=== PATIENT | male | born 2000 | race Caucasian/White ===

== ENCOUNTER 2021-01-08 15:14 | Emergency (ER) | payer OTHER ==
[~2021-01-08] VITALS: Ht 177.8 cm; Wt 89.9 kg
--- NOTE | 2021-01-08 15:28 | PHYS DOC ---
Past History Past Medical History: No Pertinent History Past Surgical History: No Surgical History Smoking: Non-smoker Alcohol Use: Occasionally Drug Use: None General Adult EDM: Chief Complaint: HAND PROBLEM HPI: HPI: 20-year-old male presents with report of right hip pain and swelling to fifth knuckle after patient reportedly was trying to get both out of his truck in order to place running boards. Patient reports the wrench slipped and he struck his side of the truck causing pain to his knuckle. Patient denies any other injury. Denies numbness and tingling. Patient reports taking 2 Tylenol prior to arrival. Review of Systems: Review of Systems: Constitutional: Denies fever or chills Eyes: Denies redness or eye pain HENT: Denies nasal congestion or sore throat Respiratory: Denies cough or shortness of breath Cardiovascular: Denies chest pain or palpitations GI: Denies abdominal pain, nausea, or vomiting : Denies dysuria or hematuria Musculoskeletal: Reports right hand pain and swelling. Integument: Denies rash or skin lesions Neurologic: Denies headache, focal weakness or sensory changes Complete systems were reviewed and found to be within normal limits, except as documented in this note. Allergies: Allergies: Allergies Coded Allergies Type Severity Reaction Last Updated Verified No Known Drug Allergies 01/08/21 No Physical Exam: PE: Constitutional: Well developed, well nourished, no acute distress, non-toxic appearance HENT: Normocephalic, atraumatic Eyes: Conjunctiva normal, no discharge Neck: Normal range of motion, supple Lungs & Thorax: No respiratory distress, equal chest rise and fall Cardiovascular: Right radial pulse +2, right hand cap refill less than 2 seconds Skin: Warm, dry, no erythema, swelling and bruising to right MCP Extremities: Right MCP swelling and tenderness on palpation, pain with range of motion about fourth and fifth digit, other digits with full range of motion Neurologic: Alert and oriented X 3, normal motor function, normal sensory function, no focal deficits noted Psychologic: Affect normal, judgment normal EKG: EKG: [] Radiology/Procedures: Radiology/Procedures: PROCEDURE: HAND RIGHT 3V EXAM: Right hand, 3 views. HISTORY: Blunt trauma. COMPARISON: None. FINDINGS: 3 views of the right hand are obtained. There is a mildly angulated fracture of the distal fifth metacarpal. There is also a small fracture fragment at the base of the fifth metacarpal of uncertain chronicity. There is no foreign body. IMPRESSION: 1. Mildly angulated fracture of the distal fifth metacarpal. 2. Small fracture fragment at the base of the fifth metacarpal, of uncertain chronicity. Correlate for pain in this location. Electronically signed by: Ester Mensah MD (01/08/2021 3:47 PM) [id number] Heart Score: C/O Chest Pain: N/A Course & Med Decision Making: Course & Med Decision Making Pertinent Imaging studies reviewed. (See chart for details) Patient presents with HPI and physical exam concerning for fracture of right hand-specifically fifth metacarpal. Ice applied. Patient took pain medication prior to arrival. X-ray confirmed fracture of distal fifth metacarpal/boxer's fracture. Splint applied. Patient stable for discharge with outpatient follow-up with PCP/orthopedic-hand. Discussed findings and plan with patient, who acknowledges understanding and agreement. Owen Disclaimer: Owen Disclaimer: This electronic medical record was generated, in whole or in part, using a voice recognition dictation system. Splinting Splinting : Location: Right hand Hand-Made Type: orthoglass Splint: ulnar Pre-Proc Neuro Vasc Exam: normal Post-Proc Neuro Vasc Exam: normal, unchanged from pre-exam Departure Departure: Impression: Primary Impression: Boxer's fracture Qualified Codes: S62.339A - Displaced fracture of neck of unspecified metacarpal bone, initial encounter for closed fracture Disposition: HOME / SELF CARE / HOMELESS Condition: STABLE Referrals: NEHEMIAS MOCK (PCP) CORNELIA CALLOWAY MD Patient Instructions: Boxer's Fracture, Splint Care, [id number] Additional Instructions: ICE area 20 min on then leave off next 20 mins. Repeat several times daily as needed for next few days. Take over the counter Tylenol and/or Ibuprofen for pain or discomfort. KEITH SULTANA DO January 08, 2021 15:28
--- NOTE | 2021-01-08 15:50 | RAD ---
EXAM: Right hand, 3 views. HISTORY: Blunt trauma. COMPARISON: None. FINDINGS: 3 views of the right hand are obtained. There is a mildly angulated fracture of the distal fifth metacarpal. There is also a small fracture fragment at the base of the fifth metacarpal of unce rtain chronicity. There is no foreign body. IMPRESSION: 1. Mildly angulated fracture of the distal fifth metacarpal. 2. Small fracture fragment at the base of the fifth metacarpal, of uncertain chronicity. Correlate fo r pain in this location. Electronically signed by: Ester Mensah MD (01/08/2021 3:47 PM) [id number]
[2021-01-08 15:59] VITALS: BP 111/78
== END 2021-01-08 16:00 | disposition home or self-care (01) ==
LOC: ER 15:14
DX: S62.316A Displaced fracture of base of fifth metacarpal bone, right hand, initial encounter for closed fracture (principal); M25.551 Pain in right hip; W22.8XXA Striking against or struck by other objects, initial encounter; Y93.89 Activity, other specified; Y92.89 Other specified places as the place of occurrence of the external cause; Y99.8 Other external cause status
CPT/HCPCS: 29125; 73130; 99283

== ENCOUNTER 2021-10-14 12:13 | Emergency (ER) | payer OTHER ==
[~2021-10-14] VITALS: Ht 175.3 cm; Wt 84.1 kg
[2021-10-14] MEDS ORDERED: GLYCERIN ADULT 1 SUPP.RECT. PR ONE (12:30)
[2021-10-14] MEDS ORDERED: BISACODYL 10 MG SUPP.RECT PR ONE (12:30)
--- NOTE | 2021-10-14 13:26 | PHYS DOC ---
Past History Past Medical History: No Pertinent History Past Surgical History: No Surgical History Smoking: Non-smoker Alcohol Use: Occasionally Drug Use: None General Adult EDM: Chief Complaint: CONSTIPATION HPI: HPI: Patient is a 21 year old male who presents with constipation and abdominal discomfort. Patient had some dental work done and was taking hydrocodone for period of 8 days. Patient states that he took [id number] laxatives at home, and has the urge to defecate, but he is afraid that it is going to "rip his anus." Patient has not taken any narcotic pain medication in the past. 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 Patient has no other complaints at this time. Review of Systems: Review of Systems: ROS negative or noncontributory except as mentioned in HPI. Current Medications: Current Meds: Current Medications Medications (Trade) Dose Ordered Sig/Bertrand Start Time Stop Time Status Last Admin Dose Admin Bisacodyl (Dulcolax Supp) 10 mg 1X ONCE 10/14/21 12:30 10/14/21 12:41 DC 10/14/21 12:48 10 MG Glycerin (Sani-Supp Adult) 1 supp 1X ONCE 10/14/21 12:30 10/14/21 12:41 DC 10/14/21 12:48 1 SUPP Allergies: Allergies: Allergies Coded Allergies Type Severity Reaction Last Updated Verified No Known Drug Allergies 01/08/21 No Physical Exam: PE: Constitutional: Well developed, well nourished, no acute distress, non-toxic appearance. HENT: Normocephalic, atraumatic, bilateral external ears normal, nose normal. Eyes: EOMI, conjunctiva normal, no discharge. Neck: Normal range of motion, no stridor. Abdomen: Bowel sounds normal, soft, lower abdominal tenderness without rebound or guarding, no masses, no pulsatile masses. Skin: Warm, dry, no erythema, no rash. Extremities: No tenderness, no cyanosis, no clubbing, ROM intact, no edema. Neurologic: Alert and oriented x4, no focal deficits noted. Current Patient Data: Vital Signs: Vital Signs Date Time Temp Pulse Resp B/P (MAP) Pulse Ox O2 Delivery O2 Flow Rate FiO2 10/14/21 12:15 98.5 68 20 134/82 (99) 98 Room Air Heart Score: C/O Chest Pain: No Course & Med Decision Making: Course & Med Decision Making Pertinent Labs and Imaging studies reviewed. (See chart for details) Patient presents with narcotic medication induced constipation. He has taken p.o. laxatives today already. Patient will be provided with glycerin and Dulcolax suppository to encourage bowel movement passage. Patient was able to pass a very large, hard bowel movement. He reports he feels "thousand times better." Counseled patient on using stool softeners simultaneously with narcotic medications moving forward. Patient understands and is agreeable to discharge plan. Dragon Disclaimer: Travelatus Disclaimer: This electronic medical record was generated, in whole or in part, using a voice recognition dictation system. Departure Departure: Impression: Primary Impression: Constipation due to pain medication Disposition: HOME / SELF CARE / HOMELESS Condition: IMPROVED Referrals: NEHEMIAS MOCK (PCP) Patient Instructions: Constipation, Adult, [id number] Additional Instructions: EMERGENCY DEPARTMENT GENERAL DISCHARGE INSTRUCTIONS Thank you for coming to [facility] (ED) today and trusting us with you care. We trust that you had a positive experience in our Emergency Department. If you wish to speak to the department management, you may call the director at [phone]. YOUR FOLLOW UP INSTRUCTIONS ARE FOLLOWS: 1. Follow up with your primary care doctor. If you do not have a primary doctor, please ask for a resource list of physicians or clinics that may be able to assist you with follow up care. 2. The emergency provider has interpreted your imaging studies, if any were ordered. The radiology computer network support specialist also reviewed them. If there is a change in the findings, you will be notified in 48 hours when at all possible. 3. If a lab test or culture has been done, your results will be reviewed and you will be notified if you need a change in treatment. 4. Follow instructions verbalized to you and refer to the printouts if needed. ADDITIONAL INSTRUCTIONS AND INFORMATION: 1. Your care today has been supervised by a physician who is specially trained in emergency care. Many problems require more than one evaluation for a complete diagnosis and treatment. We recommend that you schedule your follow up appointment as recommended to ensure complete treatment of you illness or injury. If you are unable to obtain follow up care and continue to have a problem, or if your condition worsens, we recommend that you return to the ED. 2. We are not able to safely determine your condition over the phone nor are we able to give sound medical advice over the phone. For these safety reasons, if you call for medical advice we will ask you to come to the ED for further evaluation. 3. If you have any questions regarding these discharge instructions please call the ED at [phone]. SAFETY INFORMATION: In the interest of safety, wellness, and injury prevention; we encourage you to wear your seat belt, if you smoke; quite smoking, and we encourage family to use a protective helmet for bicycling and other sporting events that present an increased risk for head injury. IF YOUR SYMPTOMS WORSEN OR NEW SYMPTOMS DEVELOP, OR YOU HAVE CONCERNS ABOUT YOUR CONDITION; OR IF YOUR CONDITION WORSENS WHILE YOU ARE WAITING FOR YOUR FOLLOW UP APPOINTMENT; EITHER CONTACT YOUR PRIMARY CARE DOCTOR, THE PHYSICIAN WHOSE NAME AND NUMBER YOU WERE GIVEN, OR RETURN TO THE ED IMMEDIATELY. CAIO COLE Oct 14, 2021 13:26
[2021-10-14 13:30] VITALS: BP 118/62
== END 2021-10-14 13:33 | disposition home or self-care (01) ==
LOC: ER 12:13
DX: K59.03 Drug induced constipation (principal); T40.605A Adverse effect of unspecified narcotics, initial encounter; Y92.89 Other specified places as the place of occurrence of the external cause
CPT/HCPCS: 99283